=== PATIENT | male | born 1965 ===

== ENCOUNTER 2018-07-16 11:59 | Emergency (ER) | payer OTHER ==
[2018-07-16 12:16] VITALS: RESP 18
--- NOTE | 2018-07-16 13:09 | ED PDOC ---
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 He reports he was at work when he bent forward and boxes fell onto his lower back. Patient states he stayed on the floor until EMS transferred him from the floor to the stretcher. Patient notes to experiencing lower back pain and neck pain. Patient denies any head injury, LOC, fever, chills, shortness of breath, chest pain, diarrhea, nausea, vomiting, urinary symptoms, headache, dizziness, or any other complaints. Time/Duration: Other (Earlier today) Symptom Onset: Sudden Symptom Course: Unchanged Quality: Aching Severity Level: Mild Activities at Onset: Significant Context: Work Past Medical History - Provider Review Nursing Documentation Reviewed: Yes - Travel History Have you recently traveled outside [place] w/in the past 3 mons?: No Family/Social History - Physician Review Nursing Documentation Reviewed: Yes Family/Social History: Unknown Family HX Allergies/Home Meds Allergies/Adverse Reactions: Allergies No Known Allergies Allergy (Verified 07/16/18 12:57) Review of Systems - Physician Review All systems were reviewed & negative as marked: Yes - Review of Systems Constitutional: absent: Fevers, Night Sweats Respiratory: absent: SOB Cardiovascular: absent: Chest Pain Gastrointestinal: absent: Diarrhea, Nausea, Vomiting Genitourinary Male: absent: Urinary Output Changes Musculoskeletal: Back Pain (+left sided back pain), Neck Pain Neurological: absent: Headache, Dizziness Physical Exam Vital Signs Reviewed: Yes Vital Signs Temp Pulse Resp BP Pulse Ox 07/16/18 12:15 97.6 F 82 18 132/69 98 Temperature: Afebrile Blood Pressure: Normal Pulse: Regular Respiratory Rate: Normal Appearance: Positive for: Well-Appearing, Non-Toxic, Comfortable Pain Distress: None Mental Status: Positive for: Alert and Oriented X 3 - Systems Exam Head: Present: Atraumatic, Normocephalic Pupils: Present: PERRL Extroacular Muscles: Present: EOMI Conjunctiva: Present: Normal Mouth: Present: Moist Mucous Membranes Neck: Present: Normal Range of Motion Respiratory/Chest: Present: Clear to Auscultation, Good Air Exchange. No: Respiratory Distress, Accessory Muscle Use Cardiovascular: Present: Regular Rate and Rhythm, Normal S1, S2. No: Murmurs Abdomen: No: Tenderness, Distention, Peritoneal Signs Back: Present: Midline Tenderness (+midline thoracic and midline lumbar tenderness), Paraspinal Tenderness (+left-sided lumbar paraspinal tenderness). No: Normal Inspection, CVA Tenderness, Pain with Leg Raise, Decubitus Ulcer, Other (no anterior chest wall tenderness) Upper Extremity: Present: Normal Inspection. No: Cyanosis, Edema Lower Extremity: Present: Normal Inspection. No: Edema Neurological: Present: GCS=15, CN II-XII Intact, Speech Normal Skin: Present: Warm, Dry, Normal Color. No: Other (No obvious sign of trauma to the face) Psychiatric: Present: Alert, Oriented x 3, Normal Insight, Normal Concentration Medical Decision Making ED Course and Treatment: 07/16/18 13:09 Impression: 53 y/o male presenting to the emergency department complaining of back pain. Differential Diagnosis included but are not limited to: - fracture - dislocation - herniated disk - muscle spasm Plan: -- Lumbar Spine CT without contrast -- Thoracic Spine CT without contrast -- Toradol -- Lidoderm -- Reassess and disposition Progress Notes: 07/16/18 15:49 CT lumbar shows evidence of slight disk bulging, but no acute fractures. CT thoracic spine negative for acute fractures or dislocations. He is updated on radiologic findings and advised to follow up. Scripts and work note provided. He is stable for discharge. - RAD Interpretation Narrative RAD Interpretations (Text): 07/16/18 15:53 CT Thoracic Spine reviewed, shows: Straightened thoracic curvature. No fracture or spondylolisthesis appreciable. No bony central canal or neural foraminal stenosis identified. CT Lumbar Spine reviewed, shows: No acute fracture or spondylolisthesis identified. Multilevel degenerative disc bulging is appreciated resulting in borderline L3-4 L4-5 central canal stenoses and mild left but borderline right degenerative neural foraminal stenoses. No overt disc herniation appreciable however MRI can be utilized for greater characterization if clinically warranted. Incidental punctate intrarenal calculus left kidney. Catering Administrative Assistant: Radiologist - Scribe Statement The provider has reviewed the documentation as recorded by the Estefania Holt All medical record entries made by the Scribe were at my direction and personally dictated by me. I have reviewed the chart and agree that the record accurately reflects my personal performance of the history, physical exam, medical decision making, and the department course for this patient. I have also personally directed, reviewed, and agree with the discharge instructions and disposition. Disposition/Present on Arrival - Present on Arrival Any Indicators Present on Arrival: No History of DVT/PE: No History of Uncontrolled Diabetes: No Urinary Catheter: No History of Decub. Ulcer: No - Disposition Have Diagnosis and Disposition been Completed?: Yes Diagnosis: Back pain Disposition: HOME/ ROUTINE Disposition Time: 15:24 Patient Plan: Discharge Condition: STABLE Discharge Instructions (ExitCare): Upper Back Pain (DC) Print Language: CANADIAN Prescriptions: Ibuprofen [Motrin Tab] 600 mg PO Q6H PRN 6 Days #24 tab PRN Reason: Pain, Moderate (4-7) Forms: [facility] ([place]), WORK NOTE
[2018-07-16 13:17] VITALS: BMI 21.6
[2018-07-16] MEDS ORDERED: Lidocaine 5% Patch TD ONE (13:23)
--- NOTE | 2018-07-16 15:03 | CT ---
Date of service: 07/16/2018 PROCEDURE: CT Thoracic Spine without contrast HISTORY: fall COMPARISON: None available. TECHNIQUE: Axial computed tomography images were obtained of the thoracic spine without intravenous contrast. Coronal and sagittal reformatted images were created and reviewed. Radiation dose: Total exam DLP = 396.33 mGy-cm. This CT exam was performed using one or more of the following dose reduction techniques: Automated exposure control, adjustment of the mA and/or kV according to patient size, and/or use of iterative reconstruction technique. FINDINGS: VERTEBRAE: Straightened curvature. No fracture or spondylolisthesis identified. Minimal anterior spondylosis upper thoracic spine. DISCS/SPINAL CANAL/NEURAL FORAMINA: Within the limits of the CT technique, no disc herniation seen. No central canal or neural foraminal stenosis.. PARASPINAL SOFT TISSUES: Unremarkable. OTHER FINDINGS: Unremarkable. IMPRESSION: Straightened thoracic curvature. No fracture or spondylolisthesis appreciable. No bony central canal or neural foraminal stenosis identified.
--- NOTE | 2018-07-16 15:09 | CT ---
Date of service: 07/16/2018 PROCEDURE: CT Lumbar Spine without contrast HISTORY: fall COMPARISON: None available. TECHNIQUE: Axial computed tomography images were obtained of the lumbar spine without the use of intravenous contrast. Coronal and sagittal reformatted images were created and reviewed. Radiation dose: Total exam DLP = 302.95 mGy-cm. This CT exam was performed using one or more of the following dose reduction techniques: Automated exposure control, adjustment of the mA and/or kV according to patient size, and/or use of iterative reconstruction technique. FINDINGS: VERTEBRAE: Unremarkable. No fracture. Normal alignment. Minimal multilevel lumbar spondylosis upper to mid lumbar spine. DISCS/SPINAL CANAL/NEURAL FORAMINA: L1-2: Unremarkable. L2-3: Limited circumferential disc bulge encroaches the bilateral lateral recesses without significant central canal stenosis. Borderline bilateral neural foraminal stenoses identified. L3-4: A circumferential disc bulge is appreciated causing borderline central stenosis concentrated at the bilateral lateral recesses with mild left and borderline right neural foraminal stenoses identified. L4-5: A circumferential disc bulge is appreciated causing borderline central stenosis concentrated at the bilateral lateral recesses with mild left and borderline right neural foraminal stenoses identified. L5-S1: Minimal disc circumferential bulging without stenosis. PREVERTEBRAL AND PARASPINAL SOFT TISSUES: Incidental note is made of punctate intrarenal calculus left kidney. Immediate prevertebral paraspinal soft tissues appear unremarkable nevertheless. OTHER FINDINGS: None. IMPRESSION: No acute fracture or spondylolisthesis identified. Multilevel degenerative disc bulging is appreciated resulting in borderline L3-4 L4-5 central canal stenoses and mild left but borderline right degenerative neural foraminal stenoses. No overt disc herniation appreciable however MRI can be utilized for greater characterization if clinically warranted. Incidental punctate intrarenal calculus left kidney.
[2018-07-16 15:45] VITALS: BP 137/71; PULSE 88; TEMP 97.8; O2SAT 99
== END 2018-07-16 16:12 | disposition home or self-care (01) ==
LOC: ED 11:59
DX: M54.9 Dorsalgia, unspecified (principal)
CPT/HCPCS: 72128; 72131; 96372; 99283; J1885